=== PATIENT | male | born 1995 | race Caucasian/White ===

== ENCOUNTER 2023-06-01 13:23 | Emergency (ER) | payer OTHER, SELFPAY ==
[2023-06-01 13:26] VITALS: BP 136/69; PULSE 73; RESP 18; TEMP 36.6; O2SAT 98; BMI 26.1
--- NOTE | 2023-06-01 13:30 | DI.RAD.S_ITS ---
PROCEDURE: XR CHEST 1V INDICATIONS: chest pain TECHNIQUE: One view of the chest was acquired. COMPARISON: None. FINDINGS: Surgical changes and devices: None. Lungs and pleura: Lungs are clear. No pleural effusions or pneumothorax. Mediastinum: Mediastinal contours appear normal. Heart size is normal. Bones and chest wall: No suspicious bony lesions. Overlying soft tissues appear unremarkable. IMPRESSION: No acute cardiopulmonary abnormality. Approved by: Zak Harris M.D. on 06/01/2023 at 15:33
[2023-06-01 13:44] LABS: Add Manual Diff / Slide Review NO; Basophils Absolute Auto 0 /uL (0-100); Basophils Percent Auto 0.5 % (0-2); Eosinophils Absolute Auto 100 /uL (0-450); Eosinophils Percent Auto 0.9 % (2-4); Hematocrit 41.8 % (41-53); Hemoglobin 14.2 g/dL (13.5-17.5); Lymphocytes Absolute Auto 2000 /uL (1100-4500); Mean Corpuscular HGB Conc 33.9 % (30-36); Mean Corpuscular Volume 88.5 fL (80-100); Monocytes Absolute Auto 700 /uL (0-900); Monocytes Percent Auto 10.2 % (3-14); Neutrophils Absolute Auto 3900 /uL (1500-7000); Neutrophils Percent Auto 58.4 % (50-75); Platelet Count 319 X10^3/uL (150-400); Red Blood Cell Count 4.72 X10^6/uL (4.5-5.9); Red Cell Distribution Width 13.1 % (11.6-14.8); White Blood Cell Count 6.7 X10^3/uL (4.5-11.0)
[2023-06-01 13:51] LABS: INR 1.2 (0.9-1.3); Prothrombin Time 13.3 SECONDS (10.1-12.7)
[2023-06-01 13:54] LABS: PTT Partial Thromboplastin Tim 30 SECONDS (26-36)
[2023-06-01 13:55] LABS: Alanine Aminotransferase 21 IU/L (<50); Albumin 4.7 g/dL (3.5-5.0); Albumin Globulin Ratio 1.5 (1.0-2.8); Alkaline Phosphatase 53 U/L (38-126); Aspartate Aminotransferase 31 IU/L (17-59); BUN Creatinine Ratio 17.1 (6-22); Bilirubin Total 0.6 mg/dL (0.2-1.3); Blood Urea Nitrogen 19 mg/dL (9-20); Carbon Dioxide 26 mmol/L (22-32); Chloride 103 mmol/L (98-107); Creatine Kinase 249 U/L (55-170); Estimated Glomerular Filt Rate > 60 mL/min (>60); Globulin 3.2 g/dL (1.7-4.1); Glucose 89 mg/dL (70-100); HEMOLYSIS < 15 (0-50); Lipase 56 U/L (23-300); Magnesium 2.1 mg/dL (1.6-2.3); Sodium 137 mmol/L (137-145); Total Protein 7.9 g/dL (6.3-8.2)
[2023-06-01 14:07] LABS: Troponin I < 0.012 ng/mL (0.01-0.034)
[2023-06-01 14:57] VITALS: BP 133/64; PULSE 64; O2SAT 98
--- NOTE | 2023-06-01 15:23 | ED_ITS ---
HPI - Arrhythmia/Palpitations <Yessenia Hennessy PA-C - Last Filed: 06/01/23 15:30> General Chief Complaint: Arrhythmia/Palpitations Stated Complaint: palpitations Time Seen by Provider: 06/01/23 15:08 Source: patient Mode of arrival: Ambulatory History of Present Illness HPI narrative: Patient is a 27-year-old male who presents with chief complaint of palpitations. He reports this has been going on for several years and he has been seen by a lapping machine tender who told him he was having frequent PVCs, which was normal. He was prescribed a beta ronny to prevent this which he recently started taking. He presents today because he has been having more episodes of palpitations, sometimes several a day. These do not seem to be associated with anything in particular. He does not get short of breath or experience chest pain when this occurs. He denies any unexplained weight loss, fever chills, shortness of breath. He has not had any palpitations while sitting in the emergency department. He exercises regularly, does not smoke, drinks rarely, does not use any drugs including no IV drugs. Related Data Allergies Allergy/AdvReac Type Severity Reaction Status Date / Time No Known Drug Allergies Allergy Verified 06/01/23 13:26 Review of Systems <Yessenia Hennessy PA-C - Last Filed: 06/01/23 15:30> Review of Systems ROS Unobtainable: All systems reviewed & are unremarkable except as noted in HPI and below Patient History <Yessenia Hennessy PA-C - Last Filed: 06/01/23 15:30> Social History Smoking Status: Never smoker Smoking Status: Never smoker alcohol intake frequency: holidays/special occasions only Substance Use Type: does not use Exam <Yessenia Hennessy PA-C - Last Filed: 06/01/23 15:30> Narrative Exam Narrative: GENERAL: 27 year old patient appears stated age. Well-developed patient. NEURO: AOx3. CARDIOVASCULAR: Regular rate and rhythm without murmurs, gallops, or rubs. RESPIRATORY: No distress EXTREMITIES: No edema or joint tenderness. SKIN: No rash or erythema of visible areas Initial Vital Signs Initial Vital Signs: Vital Signs Temperature 97.8 F 06/01/23 13:26 Pulse Rate 73 06/01/23 13:26 Respiratory Rate 18 06/01/23 13:26 Blood Pressure 136/69 06/01/23 13:26 Pulse Oximetry 98 06/01/23 13:26 Oxygen Delivery Method Room Air 06/01/23 13:26 <Jay Ballesteros MD - Last Filed: 06/20/23 21:46> Initial Vital Signs Initial Vital Signs: Vital Signs Temperature 97.8 F 06/01/23 13:26 Pulse Rate 73 06/01/23 13:26 Respiratory Rate 18 06/01/23 13:26 Blood Pressure 136/69 06/01/23 13:26 Pulse Oximetry 98 06/01/23 13:26 Oxygen Delivery Method Room Air 06/01/23 13:26 Course <Yessenia Hennessy PA-C - Last Filed: 06/01/23 15:30> Orders Ordered: Discontinued Medications Aspirin (Aspirin 81 Mg Chew Tab) 324 mg PO NOW ONE Stop: 06/01/23 13:31 Vital Signs Vital signs: Vital Signs - 8 hr 06/01/23 13:26 06/01/23 14:57 Temperature 97.8 F Pulse Rate 73 64 Respiratory Rate 18 Blood Pressure 136/69 133/64 Pulse Oximetry 98 98 Oxygen Delivery Method Room Air Room Air <Jay Ballesteros MD - Last Filed: 06/20/23 21:46> Orders Ordered: Discontinued Medications Aspirin (Aspirin 81 Mg Chew Tab) 324 mg PO NOW ONE Stop: 06/01/23 13:31 Vital Signs Vital signs: Vital Signs - 8 hr 06/01/23 13:26 06/01/23 14:57 Temperature 97.8 F Pulse Rate 73 64 Respiratory Rate 18 Blood Pressure 136/69 133/64 Pulse Oximetry 98 98 Oxygen Delivery Method Room Air Room Air MDM - Arrhythmia/Palpitations <Yessenia Hennessy PA-C - Last Filed: 06/01/23 15:30> Lab Data 06/01/23 13:38 06/01/23 13:38 Labs: Lab Results 06/01/23 06/01/23 06/01/23 Range/Units 13:38 13:38 13:38 WBC 6.7 (4.5-11.0) X10^3/uL RBC 4.72 (4.5-5.9) X10^6/uL Hgb 14.2 (13.5-17.5) g/dL Hct 41.8 (41-53) % MCV 88.5 (80-100) fL MCH 30.0 (26-34) PG MCHC 33.9 (30-36) % RDW 13.1 (11.6-14.8) % Plt Count 319 (150-400) X10^3/uL Neut % (Auto) 58.4 (50-75) % Lymph % (Auto) 30.0 (25-40) % Green % (Auto) 10.2 (3-14) % Eos % (Auto) 0.9 L (2-4) % Baso % (Auto) 0.5 (0-2) % Neut # (Auto) 3900 (6063-4289) /uL Lymph # (Auto) 2000 (8136-5981) /uL Green # (Auto) 700 (0-900) /uL Eos # (Auto) 100 (0-450) /uL Baso # (Auto) 0 (0-100) /uL PT 13.3 H (10.1-12.7) SECONDS INR 1.2 (0.9-1.3) APTT 30 (26-36) SECONDS Sodium 137 (137-145) mmol/L Potassium 4.0 (3.4-5.1) mmol/L Chloride 103 (98-107) mmol/L Carbon Dioxide 26 (22-32) mmol/L BUN 19 (9-20) mg/dL Creatinine 1.11 (0.66-1.25) mg/dL Estimated GFR > 60 (>60) mL/min BUN/Creatinine Ratio 17.1 (6-22) Glucose 89 (70-100) mg/dL Calcium 9.0 (8.4-10.2) mg/dL Magnesium 2.1 (1.6-2.3) mg/dL Total Bilirubin 0.6 (0.2-1.3) mg/dL AST 31 (17-59) IU/L ALT 21 (<50) IU/L Alkaline Phosphatase 53 (38-126) U/L Total Creatine Kinase 249 H (55-170) U/L Troponin I < 0.012 (0.01-0.034) ng/mL Total Protein 7.9 (6.3-8.2) g/dL Albumin 4.7 (3.5-5.0) g/dL Globulin 3.2 (1.7-4.1) g/dL Albumin/Globulin Ratio 1.5 (1.0-2.8) Lipase 56 (23-300) U/L ECG Data Interpretation: Normal sinus rhythm with rate of 64, [place] 142, QT 390. No ST or T-wave changes MDM Narrative Medical decision making narrative: Multiple etiologies for patient's symptoms considered including, but not limited to: Palpitations, anxiety, MO, pericarditis, myocarditis. Labs today including CBC, chemistry, troponin without clinically significant abnormality. CK mildly elevated without complaints myalgia, no recent extreme exercise, no dehydration, no medications. EKG reassuring. Patient has no chest pain or shortness of breath. I do not see anything today that requires further evaluation in the emergency department, advised to follow up with PCP, potentially request referral to a different lapping machine tender for a 2nd opinion. Patient's symptoms improved over duration of stay with above-stated therapies. Findings and discharge diagnosis discussed with patient/family followed by verbalization of understanding Return precautions discussed with patient/family whom verbalize understanding of diagnosis and plan <Jay Ballesteros MD - Last Filed: 06/20/23 21:46> Lab Data Labs: Lab Results 06/01/23 06/01/23 06/01/23 Range/Units 13:38 13:38 13:38 WBC 6.7 (4.5-11.0) X10^3/uL RBC 4.72 (4.5-5.9) X10^6/uL Hgb 14.2 (13.5-17.5) g/dL Hct 41.8 (41-53) % MCV 88.5 (80-100) fL MCH 30.0 (26-34) PG MCHC 33.9 (30-36) % RDW 13.1 (11.6-14.8) % Plt Count 319 (150-400) X10^3/uL Neut % (Auto) 58.4 (50-75) % Lymph % (Auto) 30.0 (25-40) % Green % (Auto) 10.2 (3-14) % Eos % (Auto) 0.9 L (2-4) % Baso % (Auto) 0.5 (0-2) % Neut # (Auto) 3900 (5089-8701) /uL Lymph # (Auto) 2000 (8050-1434) /uL Green # (Auto) 700 (0-900) /uL Eos # (Auto) 100 (0-450) /uL Baso # (Auto) 0 (0-100) /uL PT 13.3 H (10.1-12.7) SECONDS INR 1.2 (0.9-1.3) APTT 30 (26-36) SECONDS Sodium 137 (137-145) mmol/L Potassium 4.0 (3.4-5.1) mmol/L Chloride 103 (98-107) mmol/L Carbon Dioxide 26 (22-32) mmol/L BUN 19 (9-20) mg/dL Creatinine 1.11 (0.66-1.25) mg/dL Estimated GFR > 60 (>60) mL/min BUN/Creatinine Ratio 17.1 (6-22) Glucose 89 (70-100) mg/dL Calcium 9.0 (8.4-10.2) mg/dL Magnesium 2.1 (1.6-2.3) mg/dL Total Bilirubin 0.6 (0.2-1.3) mg/dL AST 31 (17-59) IU/L ALT 21 (<50) IU/L Alkaline Phosphatase 53 (38-126) U/L Total Creatine Kinase 249 H (55-170) U/L Troponin I < 0.012 (0.01-0.034) ng/mL Total Protein 7.9 (6.3-8.2) g/dL Albumin 4.7 (3.5-5.0) g/dL Globulin 3.2 (1.7-4.1) g/dL Albumin/Globulin Ratio 1.5 (1.0-2.8) Lipase 56 (23-300) U/L Discharge Plan Departure Patient Disposition: Home Clinical Impression: Palpitations, Anxiety Instructions: DI for Palpitations Activity Restrictions/Additional Instructions: *You have been diagnosed with reported palpitations. Today in the emergency department your blood work is normal, including your electrolytes and your troponin, which measures stress on your heart. Your EKG is also normal. This does not mean that something abnormal isn't happening, just that we have not seen it today. I would suggest you speak to your primary care about another referral to Cardiology at a different hospital to get a 2nd opinion. Some patients also find it useful to have an Apple watch her other smart watch that will monitor the heart rate to document how frequently the sorts of events are occurring. Please return to the emergency room if you developed chest pain or shortness of breath or other concerning symptoms. *What to do: *Please continue to take your regular medications as directed. [ ] New medication prescriptions sent to your pharmacy: [ ] [ ] New medication written as a paper prescription [ x] No new medications given *Please follow up with your primary care provider in 2-3 days, call for an appointment. Let them know you were seen in the Emergency Department and that we ask that you be seen in follow up. We will electronically transmit a record of today's note if your PCP is in our system *If you do not have a primary care provider please contact the [facility] Resource line at [phone]. They will ask some questions about your medical history and help get you set up with a doctor in the community. *Return to Emergency Department if you should have any new, worsening or concerning symptoms, such as [fever greater than 101 F, shaking chills, worsening pain, persistent vomiting or other bothersome symptoms] Stand Alone Forms: Patient Portal/API <Jay Ballesteros MD - Last Filed: 06/20/23 21:46> Cosign ED Attending Cosdirkature Attestation: I was immediately available in the department for consultation. This documentation has been reviewed and I agree with assessment and plan. Supervised by Jay Ballesteros MD
== END 2023-06-01 15:34 | disposition home or self-care (01) ==
PROVIDERS: Emergency Medicine; Emergency Provider Physician Assistant
DX: R00.2 Palpitations (principal); F41.9 Anxiety disorder, unspecified
CPT/HCPCS: 36415; 71045; 80053; 82550; 83690; 83735; 84484; 85025; 85610; 85730; 93005; 93010; 99283; 99284

== ENCOUNTER 2023-08-23 05:21 | Emergency (ER) | payer OTHER, MEDICAID, SELFPAY ==
[2023-08-23 05:25] VITALS: BP 149/81; PULSE 80; RESP 20; TEMP 36.6; O2SAT 100; BMI 27.2
--- NOTE | 2023-08-23 05:37 | DI.RAD.S_ITS ---
PROCEDURE: XR CHEST 2V INDICATIONS: short of breath TECHNIQUE: 2 views of the chest were acquired. COMPARISON: [facility], CR, XR CHEST 1V, 06/01/2023, 14:02. FINDINGS: Surgical changes and devices: None. Lungs and pleura: Lungs are clear. No pleural effusions or pneumothorax. Mediastinum: Mediastinal contours are normal. Heart size is normal. Bones and chest wall: No suspicious bony abnormalities. Soft tissues appear unremarkable. IMPRESSION: No acute cardiopulmonary abnormality is seen. Agree with preliminary report. Dictated by: Armen Pina M.D. on 08/23/2023 at 7:57 Approved by: Armen Pina M.D. on 08/23/2023 at 7:57
--- NOTE | 2023-08-23 05:39 | PC.NURSE ---
He describes left arm being cold,not specifically pain.denies sob,Just says he is more tired than usual and is not able ot work out.
--- NOTE | 2023-08-23 05:40 | ED.EXTPRO ---
HPI - Extremity Problem General Chief complaint: Extremity Problem,Nontraumatic Stated complaint: left arm cold, blood pressure high Time Seen by Provider: 08/23/23 05:27 Source: patient Mode of arrival: Ambulatory History of Present Illness HPI Narrative: Patient is a 27-year-old male without past medical history presenting today with left arm pain and shortness of breath. He reports that tonight he feels like he gets sharp pains or waves of coldness down his left arm. They left last briefly for about 2nd. He really does not have any chest pain but sometimes he feels like he has pressure. He reports over the last 2 months it is hard for him to work out he feels more short of breath. He is not short of breath now. He glucose a lot he reports that all of his school [employer] report that he has heart failure. He is quite worried. He feels like his diaphragm is tight. He was seen evaluated here in May had chest pain workup including troponin and electrolytes that it was negative. He says that he started a treadmill stress test with his primary but was unable to finish it because he had a panic attack in the middle. He is now extremely worried about his blood pressure 149/74. He reports he blood pressure daily and it is never this. Patient has previously been seen for palpitations. He was seen and evaluated [facility] August 04 he had blood work in EKG. Ultimately diagnosed with indigestion. At that time he is complaining of palpitations. According to records he is had palpitations off and on since school. He is had Holter monitor. He had a CT angio in 2020. He had a stress test August 22 at [facility] he stopped it earlier at his request. But no evidence of ischemia. 08/22/2023 1:45 PM PDT? ? ?Griffin treadmill score is 12. ? ?Peak METS achieved: 7.0 ? ?The patient experienced no angina during the test. ? ?Rare PVC with stress ? ?Reassuring treadmill Resting ECG ECG is normal. Nonspecific RSR prime in V1 V2 and aVL on the baseline tracings. Resting ECG shows no ST-segment deviation. The ECG shows normal sinus rhythm. Stress ECG No ST deviation was noted. Arrhythmias during stress: rare PVCs. There were no arrhythmias during recovery. Stress ECG Impression: negative for ischemia. Echo Post Stress A Brian protocol stress test was performed. Overall, the patient's exercise capacity was fair for their age. The patient reached stage 2 of the protocol after exercising for 12 min and 8 sec and had a maximal HR of 169 bpm (88 % of MPHR). Peak METS achieved: 7.0. The patient experienced no angina during the test. NOTE - not longer after starting stage 2, patient jumped off treadmill stating he was freaking out the treadmill was stopped emergently, belt stopped, the incline continued and it doesn't appear the test actually ended. Patient sat down and I noted that his HR rapidly increased from the 120's to 166bpm. I saved the hardcopy EKG printout if it is needed. I talked with patient and he begain to relax and HR followed by decreasing as well. Patient describes something he feels in his epigastric area when he runs that causes him to feel something weird he responded well to continued calm talking about his symptoms and reassurance that I am not seeing any acute emergency or red flags on EKG tracing. Patient returned to baseline and feeling better at conclusion. Patient denies having any chest pains or palpitations during exam. There were a few isolated PVC's, tachycardia noted on EKG. A peak heart rate of 169 bpm (88 % of max predicted heart rate) was achieved. The patient requested the test to be stopped.? Related Data Allergies Allergy/AdvReac Type Severity Reaction Status Date / Time No Known Drug Allergies Allergy Verified 06/01/23 13:26 Patient History Social History Smoking Status: Never smoker Smoking Status: Never smoker alcohol intake frequency: holidays/special occasions only Substance Use Type: does not use Exam Initial Vital Signs Initial Vital Signs: Vital Signs Temperature 97.8 F 08/23/23 05:25 Pulse Rate 80 08/23/23 05:25 Respiratory Rate 20 08/23/23 05:25 Blood Pressure 149/81 H 08/23/23 05:25 Pulse Oximetry 100 08/23/23 05:25 Oxygen Delivery Method Room Air 08/23/23 05:25 GENERAL: Alert well-appearing 27-year-old male and in no acute distress. HEENT: Head atraumatic,EOMI, pupils reactive, face symmetric, moist mucous membranes CARDIOVASCULAR: Regular rate and rhythm without murmurs, rubs or gallops. RESPIRATORY: Breath sounds equal bilaterally, no wheezes rales or rhonchi. ABDOMEN: Soft, nontender. Normoactive bowel sounds all 4 quadrants. No guarding or rebound. EXTREMITIES: Normal range of motion, no clubbing or edema. Neurovascularly intact NEUROLOGICAL: Alert and oriented x4.Normal gait and speech. SKIN: Warm, dry, no laceration, no petechiae, no rashes or lesions. Scores HEART Score Heart Score history: Slightly Suspicious Heart Score EKG: Normal Heart Score Age: < 45 years old Heart Score risk factors: No known risk factors Heart Score troponin: < or = to normal limit Heart Score Total: 0 Course Orders Ordered: ED Orders 08/23/23 05:37 Chest [XR chest 2V] Stat EKG-12 Lead Stat Vital Signs Vital signs: Vital Signs - 8 hr 08/23/23 05:25 Temperature 97.8 F Pulse Rate 80 Respiratory Rate 20 Blood Pressure 149/81 H Pulse Oximetry 100 Oxygen Delivery Method Room Air MDM - Extremity (Nontraumatic) Imaging Data Chest x-ray: Radiologist's Impression: No cardiopulmonary pathology ECG Data Interpretation: Normal sinus rhythm rate 68 OR interval 146 QRS 116 QTC 410 right bundle-branch block noted no ST changes similar to previous EKGs MDM Narrative Medical decision making narrative: Patient 27-year-old male without significant past medical history presenting with left arm coldness that comes and goes. He has had significant heart workup over the past couple weeks including a stress test. He is an incomplete right bundle-branch block. Vitals are stable. It appears that he has an echocardiogram or some sort of other imaging scheduled for this week. Chest x-ray EKG are stable. Patient is extremely anxious thinks that this may be part of his problem. Discharge Plan Departure Patient Disposition: Home Clinical Impression: Anxiety Instructions: DI for Anxiety -- Adult Activity Restrictions/Additional Instructions: *You have been diagnosed with *What to do: At this time you have had significant heart workup. Looks like you have something else scheduled this week. Have your doctor in you go over the results and decide if you need medication *Continue to take medications as directed *Follow up with your primary care provider in 2-3 days or call [phone] *Return to ER if you should have increasing chest pain shortness of breath weakness numbness tingling or any new, worsening or concerning symptoms Stand Alone Forms: Patient Portal/API
[2023-08-23 06:19] VITALS: BP 147/84
== END 2023-08-23 06:20 | disposition home or self-care (01) ==
PROVIDERS: Emergency Provider Emergency Medicine
DX: F41.9 Anxiety disorder, unspecified (principal); I45.10 Unspecified right bundle-branch block; R03.0 Elevated blood-pressure reading, without diagnosis of hypertension
CPT/HCPCS: 71046; 93005; 99281; 99283

== ENCOUNTER 2023-10-18 17:50 | Emergency (ER) | payer OTHER, MEDICAID, SELFPAY ==
[2023-10-18 17:52] VITALS: BP 144/63; PULSE 68; RESP 18; TEMP 36.4; O2SAT 100; BMI 27.2
--- NOTE | 2023-10-18 18:22 | ED.URI ---
HPI - URI/Sore Throat <JUAN Kunz Last Filed: 10/18/23 18:45> General Chief Complaint: Upper Respiratory Symptoms Stated Complaint: pressure on L/head and ear Time Seen by Provider: 10/18/23 18:20 Source: patient Mode of arrival: Ambulatory History of Present Illness HPI Narrative: This is a 27-year-old male presents emergency department due to head? fullness? for the last 2 weeks as well as a productive cough. Denies any nausea, vomiting, shortness of breath, chest pain, or any other concerning signs or symptoms. States he has had some bilateral ear pain. Related Data Previous Rx's Medication Instructions Recorded amoxicillin 875 mg-potassium 1 tab PO BID #20 tabs 10/18/23 clavulanate 125 mg tablet Allergies Allergy/AdvReac Type Severity Reaction Status Date / Time No Known Drug Allergies Allergy Verified 06/01/23 13:26 Review of Systems <Petar Florentino PA-C - Last Filed: 10/18/23 18:45> Review of Systems Narrative: GENERAL: Denies chills, fatigue, malaise, fever, sweats. HEENT: Reports ?head fullness sinus pain, ear pain, denies sore throat, difficulty swallowing, dizziness. RESPIRATORY: Denies dyspnea, cough, wheezing, hemoptysis, sputum. CARDIOVASCULAR: Denies chest pain, palpitations, orthopnea, edema, GASTROINTESTINAL: Denies nausea, vomiting, abdominal pain, diarrhea, constipation, melena. : Denies dysuria, frequency, incontinence, hematuria, urinary retention. MUSCULOSKELETAL: denies weakness, joint pain, or bony pain SKIN: Denies rash, skin lesions, or other NEUROLOGIC: Denies weakness, headache, numbness, change in speech, confusion, seizures, incoordination. PSYCHIATRIC: No concerning psychosocial issues. 12 point review of systems is negative except for those stated above Patient History <JUAN Kunz Last Filed: 10/18/23 18:45> Social History Smoking Status: Never smoker Smoking Status: Never smoker alcohol intake frequency: holidays/special occasions only Substance Use Type: does not use Exam <JUAN Kunz Last Filed: 10/18/23 18:45> Narrative Exam Narrative: GENERAL: Well-developed patient, in mild distress. HEAD: Atraumatic. Normocephalic. EYES: Pupils equal round and reactive. Extraocular motions intact. No scleral icterus. No injection or drainage. ENT: Nose without bleeding, purulent drainage. Throat without erythema, tonsillar hypertrophy or exudate. Airway patent. Some fullness to the right TM. No erythema. NECK: Trachea midline. Non tender CARDIOVASCULAR: Regular rate and rhythm without murmurs, gallops, or rubs. RESPIRATORY: Clear to auscultation. Breath sounds equal bilaterally. No wheezes, rales, or rhonchi. GASTROINTESTINAL: Abdomen soft, non-tender, nondistended. EXTREMITIES: No edema or joint tenderness. BACK: Nontender without deformity or crepitance. No flank tenderness. NEURO: AOx3. SKIN: No rash or erythema of visible areas Initial Vital Signs Initial Vital Signs: Vital Signs Temperature 97.6 F 10/18/23 17:52 Pulse Rate 68 10/18/23 17:52 Respiratory Rate 18 10/18/23 17:52 Blood Pressure 144/63 H 10/18/23 17:52 Pulse Oximetry 100 10/18/23 17:52 Oxygen Delivery Method Room Air 10/18/23 17:52 <Michael Ye DO - Last Filed: 10/18/23 22:12> Initial Vital Signs Initial Vital Signs: Vital Signs Temperature 97.6 F 10/18/23 17:52 Pulse Rate 68 10/18/23 17:52 Respiratory Rate 18 10/18/23 17:52 Blood Pressure 144/63 H 10/18/23 17:52 Pulse Oximetry 100 10/18/23 17:52 Oxygen Delivery Method Room Air 10/18/23 17:52 Course <Petar Florentino PA-C - Last Filed: 10/18/23 18:45> Vital Signs Vital signs: Vital Signs - 8 hr 10/18/23 17:52 Temperature 97.6 F Pulse Rate 68 Respiratory Rate 18 Blood Pressure 144/63 H Pulse Oximetry 100 Oxygen Delivery Method Room Air <Michael Ye DO - Last Filed: 10/18/23 22:12> Vital Signs Vital signs: Vital Signs - 8 hr 10/18/23 17:52 Temperature 97.6 F Pulse Rate 68 Respiratory Rate 18 Blood Pressure 144/63 H Pulse Oximetry 100 Oxygen Delivery Method Room Air MELISSA MDEEL/Sore Throat <Petar Florentino PA-C - Last Filed: 10/18/23 18:45> MDM Narrative Medical decision making narrative: MDM * differential diagnosis includes but not limited to bacterial sinusitis, viral sinusitis allergic rhinitis * Prior records reviewed: Patient was seen here 2 months ago due to anxiety. Has a attempted a treadmill stress test with his primary but had to stop due to panic attack. Cardiac workup has been negative in the past. * My lab interpretation: None obtained * My imgaing interpretation: None obtained * Clinical Decision Rules/Scores evaluated: None * Independent discussions with: None ED Course: This is a 27-year-old male presents to the emergency department due to suspected bacterial sinusitis. Has had symptoms for the last couple of weeks. No evidence of otitis media 2. Recommended use Sudafed and Flonase and will prescribe an oral antibiotic. Shared Decision Making: Discussed plan with the patient was comfortable with the plan. Social Considerations: None Disposition: Discharged to home Discharge Plan Departure Patient Disposition: Home Clinical Impression: Acute bacterial sinusitis Activity Restrictions/Additional Instructions: Thank you for coming to the [facility] Emergency Department today. Please take the oral antibiotic as prescribed. Also recommended use Flonase and Sudafed to see if this helps your symptoms. I sent the medication to [facility] in [place]. I hope you feel better soon. Please follow up with your primary care provider within a week if your symptoms continue. If you do not have a primary care provider please contact the [facility] Resource line at [phone]. They will ask some questions about your medical history and help you get set up with a provider in the community. Prescriptions: New amoxicillin-pot clavulanate 875-125 mg tablet 1 tab PO BID Qty: 20 0RF Referrals: Bernie Colón PA-C [Primary Care Provider] - Stand Alone Forms: Patient Portal/API ED Sign-out <Michael Ye DO - Last Filed: 10/18/23 22:12> Cosign ED Attending Cosignature Attestation: Dr Ye Co-Sign Statement: I was available for consultation during this patient's emergency department visit. This chart is signed by myself for administrative purposes only. I did not have direct contact with this patient during this visit. They were seen independently by the APC.
== END 2023-10-18 18:45 | disposition home or self-care (01) ==
PROVIDERS: Emergency Provider Physician Assistant Medical; PCP Physician Assistant
DX: J01.90 Acute sinusitis, unspecified (principal); H92.03 Otalgia, bilateral
CPT/HCPCS: 99281